=== PATIENT | female | born 2000 | race Caucasian/White ===

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

== ENCOUNTER → 2021-12-11 | Outpatient (REF) | payer BC, OTHER ==
[~2021-12-11] MED LIST changes: -CEFD1CAP8 PO; +CEFD300C41 PO; -SULF1TAB72 PO; +SULF400T14 PO
[2021-12-11 16:33] LABS: BASO % 0.3 % (0.0-1.0); EOS % 0.3 % (0.0-3.0); HEMOGLOBIN 13.1 g/dl (12.0-15.5); LYMPH # 1.4 10^3/uL (1.5-5.0); LYMPH % 23.1 % (24.0-44.0); MEAN CORPUSCULAR HEMOGLOBIN 30.3 pg (27.0-33.0); MEAN CORPUSCULAR HGB CONC 32.8 g/dl (32.0-36.5); MEAN CORPUSCULAR VOLUME 92.4 fl (80.0-96.0); MONO # 0.3 10^3/uL (0.0-0.8); MONO % 5.4 % (2.0-8.0); NEUTROPHILS # 4.3 10^3/uL (1.5-8.5); NEUTROPHILS % 70.7 % (36.0-66.0); PLATELET COUNT, AUTOMATED 189 10^3/uL (150-450); RED BLOOD COUNT 4.33 10^6/uL (4.00-5.40); WHITE BLOOD COUNT 6.1 10^3/uL (4.0-10.0)
[2021-12-11 17:12] LABS: ALBUMIN 5.2 GM/DL (3.2-5.2); ALT/SGPT 43 U/L (12-78); BILIRUBIN,TOTAL 0.7 MG/DL (0.2-1.0); BLOOD UREA NITROGEN 18 MG/DL (7-18); CALCIUM LEVEL 10.4 MG/DL (8.5-10.1); CARBON DIOXIDE LEVEL 27 MEQ/L (21-32); CHLORIDE LEVEL 107 MEQ/L (98-107); CREATININE FOR GFR 0.88 MG/DL (0.55-1.30); FREE T4 1.11 NG/DL (0.76-1.46); GLOMERULAR FILTRATION RATE > 60.0 (>60); GLUCOSE, FASTING 103 MG/DL (70-100); IRON (FE) 141 UG/DL (50-170); POTASSIUM SERUM 4.3 MEQ/L (3.5-5.1); SODIUM LEVEL 141 MEQ/L (136-145); THYROID STIMULATING HORMONE 0.984 uIU/ML (0.358-3.740); TOTAL IRON BINDING CAPACITY 328 UG/DL (250-450)
== END ==
LOC: M WUC 14:13
PROVIDERS: ATTEND Physician Assistant
DX: N92.0 Excessive and frequent menstruation with regular cycle (principal); K90.41 Non-celiac gluten sensitivity

== ENCOUNTER → 2022-02-11 | Outpatient (CLI) | payer BC, OTHER | LOC: M SOG 08:20 | PROVIDERS: ATTEND Physician Assistant | DX: G56.03 Carpal tunnel syndrome, bilateral upper limbs (principal) ==

== ENCOUNTER → 2022-09-13 | Outpatient (REF) | payer BC ==
[2022-09-13 15:40] LABS: FREE T4 1.13 NG/DL (0.89-1.76); THYROID STIMULATING HORMONE 0.714 uIU/ML (0.55-4.78)
[2022-09-13 15:41] LABS: TOTAL 25(OH) VITAMIN D 45.8 NG/ML (20.0-100.0)
== END ==
LOC: M SFHCADAM 11:22
PROVIDERS: ATTEND Physician Assistant
DX: F41.1 Generalized anxiety disorder (principal)

== ENCOUNTER → 2023-02-23 | Outpatient (REF) | payer BC ==
[2023-02-23 17:14] LABS: BASO % 0.3 % (0.0-1.0); EOS # 0.1 10^3/uL (0.0-0.5); EOS % 0.7 % (0.0-3.0); HEMATOCRIT 43.8 % (36.0-47.0); HEMOGLOBIN 14.1 g/dl (12.0-15.5); LYMPH # 1.3 10^3/uL (1.5-5.0); LYMPH % 18.1 % (24.0-44.0); MEAN CORPUSCULAR HEMOGLOBIN 31.1 pg (27.0-33.0); MEAN CORPUSCULAR HGB CONC 32.2 g/dl (32.0-36.5); MEAN CORPUSCULAR VOLUME 96.7 fl (80.0-96.0); MONO # 0.5 10^3/uL (0.0-0.8); MONO % 6.9 % (2.0-8.0); NEUTROPHILS # 5.2 10^3/uL (1.5-8.5); NEUTROPHILS % 73.7 % (36.0-66.0); PLATELET COUNT, AUTOMATED 192 10^3/uL (150-450); RED BLOOD COUNT 4.53 10^6/uL (4.00-5.40)
[2023-02-23 17:28] LABS: ERYTHROCYTE SEDIMENTATION RATE 6 mm/hr (0-20)
[2023-02-23 17:39] LABS: C REACTIVE PROTEIN QUANTITATIV < 0.40 MG/DL (<1.0)
[2023-02-23 17:40] LABS: RHEUMATOID FACTOR QUANT < 3.5 IU/ML (<14)
[2023-02-23 17:41] LABS: THYROID STIMULATING HORMONE 2.082 uIU/ML (0.55-4.78)
[2023-02-23 17:42] LABS: ALBUMIN 4.5 G/DL (3.2-5.2); ALKALINE PHOSPHATASE 56 U/L (46-116); ALT/SGPT 29 U/L (7.0-40); AST/SGOT 14 U/L (<34); BILIRUBIN,TOTAL 0.7 MG/DL (0.3-1.2); BLOOD UREA NITROGEN 11 MG/DL (9-23); CALCIUM LEVEL 9.5 MG/DL (8.5-10.1); CARBON DIOXIDE LEVEL 32 MMOL/L (20-31); CHLORIDE LEVEL 102 MMOL/L (98-107); CREATININE FOR GFR 0.87 MG/DL (0.55-1.30); GLOMERULAR FILTRATION RATE > 60.0 (>60); GLUCOSE, FASTING 58 MG/DL (60-100); POTASSIUM SERUM 3.7 MMOL/L (3.5-5.1); SODIUM LEVEL 141 MMOL/L (136-145); TOTAL PROTEIN 7.3 G/DL (5.7-8.2)
[2023-02-23 17:43] LABS: MONO REFLEX EBV COMP NEGATIVE (NEGATIVE)
[2023-02-25 15:08] LABS: EBV AB TO NUCLEAR ANTIGEN <18.0 U/mL (0.0-17.9); EBV VIRAL CAPSID AG IgG <18.0 U/mL (0.0-17.9); EBV VIRAL CAPSID AG IgM <36.0 U/mL (0.0-35.9)
[2023-02-25 23:07] LABS: ANA (HEP2) Negative (.)
== END ==
LOC: M SFHCADAM 10:22
PROVIDERS: ATTEND Physician Assistant
DX: G89.29 Other chronic pain (principal); R53.83 Other fatigue

== ENCOUNTER → 2023-02-23 | Outpatient (CLI) | payer BC | LOC: M ADAMS 10:48 | PROVIDERS: ATTEND Physician Assistant | DX: M41.20 Other idiopathic scoliosis, site unspecified (principal); M25.561 Pain in right knee; M25.562 Pain in left knee ==

== ENCOUNTER → 2023-08-03 | Outpatient (REF) | payer BC, OTHER ==
[~2023-08-03] MED LIST changes: +ACET-897 PO; +AMPH1TAB2 PO; +CEFD1CAP9 PO; -CEFD300C41 PO; +LEXA1TAB PO; +LURA20TA PO; +PROP20TA72 PO; +TEST200I14 IM; +TRAM50TA2 PO; +VENL150C43 PO
[2023-08-03 12:33] LABS: MEAN CORPUSCULAR HEMOGLOBIN 31.6 pg (27.0-33.0); MEAN CORPUSCULAR HGB CONC 32.6 g/dl (32.0-36.5); MEAN CORPUSCULAR VOLUME 97.1 fl (80.0-96.0); PLATELET COUNT, AUTOMATED 189 10^3/uL (150-450); RED BLOOD COUNT 4.43 10^6/uL (4.00-5.40); WHITE BLOOD COUNT 5.8 10^3/uL (4.0-10.0)
[2023-08-03 13:07] LABS: BLOOD UREA NITROGEN 8 MG/DL (9-23); CALCIUM LEVEL 9.4 MG/DL (8.5-10.1); CARBON DIOXIDE LEVEL 34 MMOL/L (20-31); CHLORIDE LEVEL 104 MMOL/L (98-107); CREATININE FOR GFR 0.88 MG/DL (0.55-1.30); GLOMERULAR FILTRATION RATE > 60.0 (>60); GLUCOSE, FASTING 73 MG/DL (60-100); POTASSIUM SERUM 4.2 MMOL/L (3.5-5.1); SODIUM LEVEL 140 MMOL/L (136-145)
== END ==
LOC: M LABWUC 12:08
PROVIDERS: ATTEND Plastic Surgery Surgery of the Hand
DX: N62 Hypertrophy of breast (principal); F64.9 Gender identity disorder, unspecified

== ENCOUNTER 2023-08-09 06:10 | Observation (INO) | payer BC ==
[2023-08-09] VITALS (7 sets, daily range): BP systolic 118–133; BP diastolic 65–82; TEMP 97–97.7; O2SAT 95–98
[~2023-08-09] VITALS: Ht 167.6 cm; Wt 74.5 kg
[~2023-08-09 06:10] MED LIST changes: -TRAM50TA2 PO
[2023-08-09] MEDS ORDERED: ROCURONIUM BROMIDE 50MG/5ML VIAL As Ordered ONE (06:50)
[2023-08-09] MEDS ORDERED: propofoL 200 MG/20 ML VIAL As Ordered ONE (06:50)
[2023-08-09] MEDS ORDERED: LIDOCAINE 2% 100MG/5ML SDV (FOR ANES.) As Ordered ONE (06:50)
[2023-08-09] MEDS ORDERED: dexmedeTOMIDine (4MCG/ML)200MCG/50ML BTL (PRECEDEX) As Ordered ONE (06:50)
[2023-08-09] MEDS ORDERED: fentaNYL 100 MCG/2 ML INJECTION As Ordered ONE (06:51)
[2023-08-09] MEDS ORDERED: MIDAZOLAM INJ 2MG/2ML VIAL As Ordered ONE (06:51)
[2023-08-09] MEDS ORDERED: ePHEDrine SULFATE 25 MG/5 ML(5MG/ML) SYRINGE As Ordered ONE (06:52)
[2023-08-09] MEDS ORDERED: PHENYLephrine 500MCG 5ML (100MCG/ML) SYRINGE As Ordered ONE (06:52)
[2023-08-09] MEDS ORDERED: ONDANSETRON 4MG 2ML VIAL As Ordered ONE (06:52)
[2023-08-09] MEDS: LR 1,000 ML IV SCH ×3 (07:07→13:25)
[2023-08-09] MEDS: CLINDAMYCIN 900 MG in IV 1 EA IV ONE (07:51)
[2023-08-09] MEDS: HEPARIN SOD (PORCINE) 5000UNITS/ML 1ML VIAL/SYRINGE SQ ONE (08:09)
[2023-08-09] MEDS: LIDOCAINE 1% MDV 20ML VIAL As Ordered ONE (08:10)
[2023-08-09] MEDS: EPINEPHrine INJ 1 MG/ML 1ML AMP As Ordered ONE (08:10)
[2023-08-09] MEDS: GENTAMICIN SULF 80MG/2ML VIAL As Ordered ONE (08:12)
[2023-08-09] MEDS ORDERED: SUGAMMADEX SODIUM 500 MG/5 ML VIAL (BRIDION) As Ordered ONE (08:36)
[2023-08-09] MEDS ORDERED: ACETAMINOPHEN 1000MG 100ML IV BAG As Ordered ONE (08:54)
[2023-08-09] MEDS ORDERED: HYDROmorphone HCL 2MG/ML 1ML VIAL As Ordered ONE (09:19)
[2023-08-09] MEDS ORDERED: ONDANSETRON 4MG 2ML VIAL IV PRN ×2 (11:15→11:45)
[2023-08-09] MEDS ORDERED: fentaNYL 100 MCG/2 ML INJECTION IV PRN (11:15)
[2023-08-09] MEDS ORDERED: ACETAMINOPHEN TAB 650MG DOSE (2X325MG) PO PRN (11:45)
[2023-08-09] MEDS: oxyCODONE 5MG TAB PO PRN (12:32)
[2023-08-09] MEDS ORDERED: HOME MED LIST COMPLETE! XX SCH (15:10)
[2023-08-09] MEDS: PROPRANOLOL 20 MG TAB PO SCH (17:27)
[2023-08-09] MEDS: LURASIDONE 20 MG TAB (LATUDA) PO SCH (17:27)
[2023-08-09] MEDS: PERCOCET 5MG/325MG TAB PO PRN (17:28)
[2023-08-10] VITALS (9 sets, daily range): BP systolic 109–123; BP diastolic 59–79; TEMP 97.5–98.1; O2SAT 81–99
[2023-08-10] MEDS: ADDERALL 5 MG TAB PO SCH (05:00)
[2023-08-10] MEDS: VENLAFAXINE **XR** 75MG CAPSULE PO SCH (08:55)
[2023-08-10 10:39] LABS: HEMATOCRIT 35.4 % (36.0-47.0); HEMOGLOBIN 11.7 g/dl (12.0-15.5); MEAN CORPUSCULAR HEMOGLOBIN 31.7 pg (27.0-33.0); MEAN CORPUSCULAR HGB CONC 33.1 g/dl (32.0-36.5); MEAN CORPUSCULAR VOLUME 95.9 fl (80.0-96.0); PLATELET COUNT, AUTOMATED 232 10^3/uL (150-450); RED BLOOD COUNT 3.69 10^6/uL (4.00-5.40); WHITE BLOOD COUNT 13.7 10^3/uL (4.0-10.0)
[2023-08-10 11:28] LABS: BLOOD UREA NITROGEN 11 MG/DL (9-23); CARBON DIOXIDE LEVEL 31 MMOL/L (20-31); CHLORIDE LEVEL 102 MMOL/L (98-107); CREATININE FOR GFR 0.79 MG/DL (0.55-1.30); GLOMERULAR FILTRATION RATE > 60.0 (>60); GLUCOSE, FASTING 97 MG/DL (60-100); POTASSIUM SERUM 4.2 MMOL/L (3.5-5.1); SODIUM LEVEL 137 MMOL/L (136-145)
[2023-08-10] MEDS ORDERED: CLINDAMYCIN 600MG/50ML PREMIX BAG As Ordered ONE (16:50)
[2023-08-10] MEDS ORDERED: CLINDAMYCIN 900MG/50ML PREMIX BAG As Ordered ONE (16:50)
[2023-08-10] MEDS: traMADol 50 MG TAB PO PRN (21:34)
[2023-08-11 00:30] VITALS: BP 115/65; TEMP 97.7; O2SAT 97
[2023-08-11 01:30] VITALS: BP 115/66; TEMP 97.7; O2SAT 97
[2023-08-11 05:30] VITALS: BP 117/71; TEMP 97.7; O2SAT 98
[2023-08-11] MEDS ORDERED: TRAM50TA2 PO (08:24)
[2023-08-11 09:41] VITALS: BP 117/71
== END 2023-08-11 12:55 | disposition home or self-care (01) ==
LOC: M SDC 06:10 → M RR INP 11:42 → M MS5PR 13:01
PROVIDERS: ADMIT Plastic Surgery Surgery of the Hand; ATTEND Plastic Surgery Surgery of the Hand
DX: F64.9 Gender identity disorder, unspecified (principal); N62 Hypertrophy of breast; N64.89 Other specified disorders of breast; L76.31 Postprocedural hematoma of skin and subcutaneous tissue following a dermatologic procedure; F32.A Depression, unspecified; R41.9 Unspecified symptoms and signs involving cognitive functions and awareness; Z88.0 Allergy status to penicillin; Z79.899 Other long term (current) drug therapy; Z79.890 Hormone replacement therapy
CPT/HCPCS: 19318; 21501; 36415; 80048; 81025; 85027; 87635; 88300; 88304; 88305; C9290; J0131; J0171; J0737; J1100; J1170; J1580; J2250; J2371; J2405; J3010

== ENCOUNTER → 2023-12-27 | Outpatient (REF) | payer BC ==
[~2023-12-27] MED LIST changes: +OXYC1TAB23 PO; +TRAM50TA2 PO
[2023-12-27 18:51] LABS: HEMATOCRIT 40.4 % (36.0-47.0); HEMOGLOBIN 13.5 g/dl (12.0-15.5); MEAN CORPUSCULAR HEMOGLOBIN 31.1 pg (27.0-33.0); MEAN CORPUSCULAR HGB CONC 33.4 g/dl (32.0-36.5); MEAN CORPUSCULAR VOLUME 93.1 fl (80.0-96.0); PLATELET COUNT, AUTOMATED 247 10^3/uL (150-450); RED BLOOD COUNT 4.34 10^6/uL (4.00-5.40); WHITE BLOOD COUNT 8.2 10^3/uL (4.0-10.0)
[2023-12-27 19:08] LABS: BLOOD UREA NITROGEN 16 MG/DL (9-23); CALCIUM LEVEL 10.2 MG/DL (8.5-10.1); CARBON DIOXIDE LEVEL 25 MMOL/L (20-31); CHLORIDE LEVEL 106 MMOL/L (98-107); CREATININE FOR GFR 0.83 MG/DL (0.55-1.30); GLOMERULAR FILTRATION RATE > 60.0 (>60); GLUCOSE, FASTING 96 MG/DL (60-100); POTASSIUM SERUM 3.8 MMOL/L (3.5-5.1); SODIUM LEVEL 138 MMOL/L (136-145)
== END ==
LOC: M LABWUC 16:21
PROVIDERS: ATTEND Plastic Surgery Surgery of the Hand
DX: Z01.818 Encounter for other preprocedural examination (principal); N62 Hypertrophy of breast

== ENCOUNTER 2023-12-29 06:04 | Day surgery (SDC) | payer BC ==
[~2023-12-29] VITALS: Ht 167.6 cm; Wt 80.9 kg
[~2023-12-29 06:04] MED LIST changes: -OXYC1TAB23 PO
[2023-12-29 06:54] LABS: HEMATOCRIT 39.3 % (36.0-47.0); HEMOGLOBIN 13.1 g/dl (12.0-15.5); MEAN CORPUSCULAR HEMOGLOBIN 31.1 pg (27.0-33.0); MEAN CORPUSCULAR HGB CONC 33.3 g/dl (32.0-36.5); MEAN CORPUSCULAR VOLUME 93.3 fl (80.0-96.0); PLATELET COUNT, AUTOMATED 217 10^3/uL (150-450); RED BLOOD COUNT 4.21 10^6/uL (4.00-5.40); WHITE BLOOD COUNT 6.3 10^3/uL (4.0-10.0)
[2023-12-29] MEDS: LR 1,000 ML IV SCH (07:00)
[2023-12-29 07:09] LABS: BLOOD UREA NITROGEN 15 MG/DL (9-23); CALCIUM LEVEL 9.5 MG/DL (8.5-10.1); CARBON DIOXIDE LEVEL 29 MMOL/L (20-31); CHLORIDE LEVEL 106 MMOL/L (98-107); CREATININE FOR GFR 0.81 MG/DL (0.55-1.30); GLOMERULAR FILTRATION RATE > 60.0 (>60); GLUCOSE, FASTING 85 MG/DL (60-100); POTASSIUM SERUM 3.8 MMOL/L (3.5-5.1); SODIUM LEVEL 141 MMOL/L (136-145)
[2023-12-29] MEDS: LIDOCAINE 1% MDV 20ML VIAL As Ordered ONE (07:16)
[2023-12-29] MEDS: EPINEPHrine INJ 1 MG/ML 1ML AMP As Ordered ONE (07:16)
[2023-12-29] MEDS ORDERED: propofoL 200 MG/20 ML VIAL As Ordered ONE (07:26)
[2023-12-29] MEDS ORDERED: LIDOCAINE 2% 100MG/5ML SDV (FOR ANES.) As Ordered ONE (07:26)
[2023-12-29] MEDS ORDERED: ONDANSETRON 4MG 2ML VIAL As Ordered ONE (07:26)
[2023-12-29] MEDS ORDERED: fentaNYL 250 MCG/5 ML INJECTION As Ordered ONE (07:26)
[2023-12-29] MEDS ORDERED: dexmedeTOMIDine (4MCG/ML)200MCG/50ML BTL (PRECEDEX) As Ordered ONE (07:27)
[2023-12-29] MEDS ORDERED: MIDAZOLAM INJ 2MG/2ML VIAL As Ordered ONE (07:27)
[2023-12-29] MEDS ORDERED: LACRILUBE (AKWA TEARS) OPHTH OINT 3.5GM As Ordered ONE (08:00)
[2023-12-29] MEDS ORDERED: ACETAMINOPHEN 1000MG 100ML IV BAG As Ordered ONE (08:00)
[2023-12-29] MEDS: CLINDAMYCIN 900 MG in IV 1 EA IV ONE (08:00)
[2023-12-29] MEDS ORDERED: METOCLOPRAMIDE INJ 10MG/2ML VIAL As Ordered ONE (08:09)
[2023-12-29] MEDS: GENTAMICIN SULF 80MG/2ML VIAL As Ordered ONE (08:30)
[2023-12-29] MEDS ORDERED: ePHEDrine SULFATE 25 MG/5 ML(5MG/ML) SYRINGE As Ordered ONE (09:12)
[2023-12-29] MEDS ORDERED: ONDANSETRON 4MG 2ML VIAL IV PRN (09:35)
[2023-12-29] MEDS ORDERED: fentaNYL 100 MCG/2 ML INJECTION IV PRN (09:35)
[2023-12-29] MEDS ORDERED: OXYC1TAB23 PO (09:51)
[2023-12-29] MEDS: oxyCODONE 5MG TAB PO PRN (10:26)
[2023-12-29 11:33] VITALS: BP 134/64; TEMP 97.1; O2SAT 99
== END 2023-12-29 11:56 | disposition home or self-care (01) ==
LOC: M SDC 06:04
PROVIDERS: ATTEND Plastic Surgery Surgery of the Hand
DX: N64.53 Retraction of nipple (principal); L91.0 Hypertrophic scar; F64.9 Gender identity disorder, unspecified; Z88.0 Allergy status to penicillin; Z79.899 Other long term (current) drug therapy
CPT/HCPCS: 19380; 36415; 80048; 85027; 88302; C9290; J0131; J0665; J0737; J1100; J1580; J2250; J2405; J2765; J3010